=== PATIENT | female | born 1935 | race Caucasian/White ===

== ENCOUNTER 2017-12-24 14:15 | Observation (INO) | payer MEDICARE, BC ==
[2017-12-24] MEDS ORDERED: Sodium Chloride 0.9% 10 ML Syringe FLUSH PRN (14:37)
[2017-12-24] MEDS ORDERED: Ketorolac 30 MG/ML SDV IVPUSH ONE (15:31)
[2017-12-24] MEDS: Sodium Chloride 0.9% 1,000 ML IV SCH (15:45)
[2017-12-24] MEDS ORDERED: Morphine 2 MG/ML Syringe IVPUSH ONE (15:53)
[2017-12-24] MEDS ORDERED: Ondansetron 4 MG/2 ML SDV IV PRN (18:14)
--- NOTE | 2017-12-24 18:14 | EDM.PDOC ---
ED HPI GENERAL MEDICAL PROBLEM - General Chief Complaint: Back Pain or Injury Stated Complaint: CANT CONTROL PAIN Time Seen by Provider: 12/24/17 14:15 Source of Information: Reports: Patient, Family History Limitations: Reports: Physical Impairment - History of Present Illness INITIAL COMMENTS - FREE TEXT/NARRATIVE: 82y.o.w.f with a h/o metastatic pancreatic CA, recently dx'd at [facility], came to the ed with her family due to abdominal and back pain. Pt did not eat much in the past 4 days and did not have a BM for 4 days. Pt is on a Fentanyl patch and takes Vicodin on a scheduled basis. No N/V/D no Dizziness, no other acute medical issues BP 164/81 Pulse 65 RR 18 Pulse ox 96 Temp 36.8 Onset Date: 12/21/17 Onset Time: 04:00 Duration: Day(s): Location: Reports: Abdomen, Back Quality: Reports: Ache, Same as Previous Episode Severity: Moderate Improves with: Reports: Medication, Rest Worsens with: Reports: Movement Context: Reports: Other (metastatic pancreatic CA) abdominal/back Pain Score (Numeric/FACES): 7 - Related Data Allergies Allergy/AdvReac Type Severity Reaction Status Date / Time lisinopril Allergy Rash Verified 12/24/17 18:45 Home Meds: Home Meds Hydrocodone/Acetaminophen [Hydrocodon-Acetaminophn 10-325] 1 tab PO Q4HR [History] Levothyroxine [Synthroid] 50 mcg PO DAILY 12/24/17 [History] Lidocaine 5% [Lidoderm 5%] 1 patch IDERM Q8HR 12/24/17 [History] Losartan Potassium 25 mg PO BID 12/24/17 [History] Sertraline HCl 50 mg PO DAILY 12/24/17 [History] amLODIPine Besylate [Amlodipine Besylate] 10 mg PO DAILY 12/24/17 [History] fentaNYL [Duragesic] 12 mcg TD Q72H 12/24/17 [History] Past Medical History HEENT History: Reports: Impaired Vision Cardiovascular History: Reports: High Cholesterol, Hypertension Gastrointestinal History: Reports: Other (See Below) Other Gastrointestinal History: newly diagnosed with pancreatic cancer. 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 Endocrine/Metabolic History: Reports: Hypothyroidism Social & Family History - Family History Family Medical History: Noncontributory - Tobacco Use Smoking Status *Q: Never Smoker - Caffeine Use Caffeine Use: Reports: Coffee, Soda, Tea - Recreational Drug Use Recreational Drug Use: No ED ROS GENERAL - Review of Systems Review Of Systems: See Below (0) Constitutional: Reports: Weakness HEENT: Reports: No Symptoms Respiratory: Reports: No Symptoms Cardiovascular: Reports: No Symptoms Endocrine: Reports: No Symptoms GI/Abdominal: Reports: Abdominal Pain : Reports: No Symptoms Musculoskeletal: Reports: Back Pain Skin: Reports: No Symptoms Neurological: Reports: No Symptoms Psychiatric: Reports: No Symptoms Hematologic/Lymphatic: Reports: No Symptoms Immunologic: Reports: No Symptoms ED EXAM, GI/ABD - Physical Exam Exam: See Below Exam Limited By: No Limitations General Appearance: Alert, WD/WN, Mild Distress Eyes: Bilateral: Normal Appearance Ears: Normal External Exam Nose: Normal Inspection Throat/Mouth: Normal Inspection, Normal Lips Head: Atraumatic, Normocephalic Neck: Normal Inspection Respiratory/Chest: No Respiratory Distress, Lungs Clear, Normal Breath Sounds ( poor ) Cardiovascular: Normal Peripheral Pulses, Regular Rate, Rhythm GI/Abdominal Exam: Normal Bowel Sounds, Tender (generalized) (Female) Exam: Deferred Rectal (Female) Exam: Deferred Back Exam: Normal Inspection, Full Range of Motion Extremities: Normal Inspection, Normal Range of Motion, Non-Tender, No Pedal Edema, Normal Capillary Refill Neurological: Alert, Oriented, CN II-XII Intact, Normal Cognition, Other (gate not tested, pt said she could walf if they would let her.) Psychiatric: Normal Affect, Normal Mood Skin Exam: Warm, Dry, Intact, Pallor Lymphatic: No Adenopathy Course - Vital Signs Text/Narrative:: 82y.o.w.f with a h/o metastatic pancreatic CA, recently dx'd at [facility], came to the ed with her family due to abdominal and back pain. Pt did not eat much in the past 4 days and did not have a BM for 4 days. Pt is on a Fentanyl patch and takes Vicodin on a scheduled basis. No N/V/D no Dizziness, no other acute medical issues BP 164/81 Pulse 65 RR 18 Pulse ox 96 Temp 36.8 PE: Pale appearing 82 y.o.w.f C/O abd and back pain Imaging: Abd flat upright: NAD Labs; NL WBC, BUN 27 Cr o.9 UA neg for UTI Impression: H/O metastatic pancreatic CA, Abd and back pain, nonspecific Tx: Toradol/morphine Reexam: Improved 6. Consultation: Dr. Martinez: Acceptance for admission Plan: Admit for obs for pain control Last Recorded V/S: Last Vital Signs Temp 36.6 C 12/24/17 18:40 Pulse 66 12/24/17 18:40 Resp 18 12/24/17 18:40 BP 160/60 H 12/24/17 18:40 Pulse Ox 95 12/24/17 18:40 - Orders/Labs/Meds Orders: Active Orders 24 hr Category Date Time Status Patient Status [ADT] Routine ADT 12/24/17 18:15 Active Oxygen Therapy [RC] PRN Care 12/24/17 18:15 Active Up With Assistance [RC] ASDIRECTED Care 12/24/17 18:14 Active VTE/DVT Education [RC] Per Unit Routine Care 12/24/17 18:15 Active Vital Signs [RC] Q4H Care 12/24/17 18:15 Active Regular Diet [DIET] Diet 12/24/17 Breakfast Ordered Abdomen 2V AP Upright Decub [CR] Stat Exams 12/24/17 14:37 Taken Lactated Ringers [Ringers, Lactated] 1,000 ml Med 12/24/17 18:15 Active IV ASDIRECTED Morphine Med 12/24/17 18:14 Active 1 mg IVPUSH Q2H PRN Ondansetron [Zofran] Med 12/24/17 18:14 Active 4 mg IV Q4H PRN Sodium Chloride 0.9% [Normal Saline] 1,000 ml Med 12/24/17 15:45 Active IV ASDIRECTED Sodium Chloride 0.9% [Saline Flush] Med 12/24/17 14:37 Active 10 ml FLUSH ASDIRECTED PRN Peripheral IV Insertion Adult [OM.PC] Routine Oth 12/24/17 14:37 Ordered Resuscitation Status Routine Resus Stat 12/24/17 18:14 Ordered Medication Orders Hydrocodone Bitart/Acetaminophen ([place] 325-10 Mg) 1 tab PO Q4H PREETHI Amlodipine Besylate (Norvasc) 10 mg PO DAILY PREETHI Sodium Chloride (Normal Saline) 1,000 mls @ 125 mls/hr IV ASDIRECTED PREETHI Lactated Ringer's (Ringers, Lactated) 1,000 mls @ 125 mls/hr IV ASDIRECTED PREETHI Levothyroxine Sodium (Synthroid) 50 mcg PO DAILY PREETHI Losartan Potassium (Cozaar) 25 mg PO BID PREETHI Morphine Sulfate (Morphine) 1 mg IVPUSH Q2H PRN PRN Reason: Pain (severe 7-10) Ondansetron HCl (Zofran) 4 mg IV Q4H PRN PRN Reason: Nausea/Vomiting Sertraline HCl (Zoloft) 50 mg PO DAILY [facility], [facility] Sodium Chloride (Saline Flush) 10 ml FLUSH ASDIRECTED PRN PRN Reason: Keep Vein Open Labs: Laboratory Tests 12/24/17 12/24/17 12/24/17 Range/Units 14:50 14:50 14:50 WBC 11.5 (4.5-12.0) X10-3/uL RBC 4.04 (3.23-5.20) x10(6)uL Hgb 11.9 (11.5-15.5) g/dL Hct 35.1 (30.0-51.3) % MCV 86.9 (80-96) fL MCH 29.4 (27.7-33.6) pg MCHC 33.9 (32.2-35.4) g/dL RDW 12.9 (11.5-15.5) % Plt Count 376 H (125-369) X10(3)uL MPV 7.8 (7.4-10.4) fL Neut % (Auto) 78.7 (46-82) % Lymph % (Auto) 8.2 L (13-37) % Cross % (Auto) 8.7 (4-12) % Eos % (Auto) 3 (1.0-5.0) % Baso % (Auto) 1 (0-2) % Neut # (Auto) 9.1 H (1.6-8.3) # Lymph # (Auto) 0.9 (0.6-5.0) # Cross # (Auto) 1.0 (0.0-1.3) # Eos # (Auto) 0.4 (0.0-0.8) # Baso # (Auto) 0.1 (0.0-0.2) # PT (8.7-11.1) INR (0.89-1.13) Sodium 137 (135-145) mmol/L Potassium 4.1 (3.5-5.3) mmol/L Chloride 101 (100-110) mmol/L Carbon Dioxide 26 (21-32) mmol/L BUN 27 H (7-18) mg/dL Creatinine 0.9 (0.55-1.02) mg/dL Est Cr Clr Drug Dosing TNP Estimated GFR (MDRD) > 60 (>60) BUN/Creatinine Ratio 30.0 H (9-20) Glucose 245 H (80-116) mg/dL Calcium 9.1 (8.6-10.2) mg/dL NT-Pro-B Natriuret Pep 195 (<=450) pg/mL Amylase (25-115) U/L Urine Color (YELLOW) Urine Appearance (CLEAR) Urine pH (5.0-6.5) Ur Specific [place] (1.010-1.025) Urine Protein (NEGATIVE) mg/dL Urine Glucose (UA) (NEGATIVE) mg/dL Urine Ketones (NEGATIVE) mg/dL Urine Occult Blood (NEGATIVE) Urine Nitrite (NEGATIVE) Urine Bilirubin (NEGATIVE) Urine Urobilinogen (NEGATIVE) mg/dL Ur Leukocyte Esterase (NEGATIVE) Urine RBC (0) Urine WBC (0) Ur Squamous Epith Cells (NS,R,O) Urine Bacteria (NS) 12/24/17 12/24/17 12/24/17 Range/Units 14:50 14:50 17:20 WBC (4.5-12.0) X10-3/uL RBC (3.23-5.20) x10(6)uL Hgb (11.5-15.5) g/dL Hct (30.0-51.3) % MCV (80-96) fL MCH (27.7-33.6) pg MCHC (32.2-35.4) g/dL RDW (11.5-15.5) % Plt Count (125-369) X10(3)uL MPV (7.4-10.4) fL Neut % (Auto) (46-82) % Lymph % (Auto) (13-37) % Cross % (Auto) (4-12) % Eos % (Auto) (1.0-5.0) % Baso % (Auto) (0-2) % Neut # (Auto) (1.6-8.3) # Lymph # (Auto) (0.6-5.0) # Cross # (Auto) (0.0-1.3) # Eos # (Auto) (0.0-0.8) # Baso # (Auto) (0.0-0.2) # PT 13.7 H (8.7-11.1) INR 1.35 H (0.89-1.13) Sodium (135-145) mmol/L Potassium (3.5-5.3) mmol/L Chloride (100-110) mmol/L Carbon Dioxide (21-32) mmol/L BUN (7-18) mg/dL Creatinine (0.55-1.02) mg/dL Est Cr Clr Drug Dosing Estimated GFR (MDRD) (>60) BUN/Creatinine Ratio (9-20) Glucose (80-116) mg/dL Calcium (8.6-10.2) mg/dL NT-Pro-B Natriuret Pep (<=450) pg/mL Amylase 38 (25-115) U/L Urine Color Yellow (YELLOW) Urine Appearance Clear (CLEAR) Urine pH 5.0 (5.0-6.5) Ur Specific [place] 1.025 (1.010-1.025) Urine Protein Negative (NEGATIVE) mg/dL Urine Glucose (UA) 250 H (NEGATIVE) mg/dL Urine Ketones Negative (NEGATIVE) mg/dL Urine Occult Blood Negative (NEGATIVE) Urine Nitrite Negative (NEGATIVE) Urine Bilirubin Small H (NEGATIVE) Urine Urobilinogen 4 H (NEGATIVE) mg/dL Ur Leukocyte Esterase Negative (NEGATIVE) Urine RBC 0-5 (0) Urine WBC 0-5 (0) Ur Squamous Epith Cells Moderate H (NS,R,O) Urine Bacteria Few H (NS) Meds: Medications Generic Name Dose Route Start Last Admin Trade Name Freq PRN Reason Stop Dose Admin Hydrocodone Bitart/Acetaminophen 1 tab 12/24/17 18:30 [place] 325-10 Mg PO Q4H PREETHI Amlodipine Besylate 10 mg 12/25/17 09:00 Norvasc PO DAILY PREETHI Sodium Chloride 1,000 mls @ 125 mls/hr 12/24/17 15:45 Normal Saline IV ASDIRECTED PREETHI Lactated Ringer's 1,000 mls @ 125 mls/hr 12/24/17 18:15 Ringers, Lactated IV ASDIRECTED [facility], [facility]–1983 Levothyroxine Sodium 50 mcg 12/25/17 09:00 Synthroid PO DAILY [facility] Losartan Potassium 25 mg 12/24/17 21:00 Cozaar PO BID [facility], [facility]1983 Morphine Sulfate 1 mg 12/24/17 18:14 Morphine IVPUSH Q2H PRN Pain (severe 7-10) Ondansetron HCl 4 mg 12/24/17 18:14 Zofran IV Q4H PRN Nausea/Vomiting Sertraline HCl 50 mg 12/25/17 09:00 Zoloft PO DAILY [facility] Sodium Chloride 10 ml 12/24/17 14:37 Saline Flush FLUSH ASDIRECTED PRN Keep Vein Open Discontinued Medications Generic Name Dose Route Start Last Admin Trade Name Freq PRN Reason Stop Dose Admin Ketorolac Tromethamine 15 mg 12/24/17 15:31 12/24/17 15:38 Toradol IVPUSH 12/24/17 15:32 15 mg ONETIME ONE Administration Morphine Sulfate 2 mg 12/24/17 15:53 12/24/17 15:57 Morphine IVPUSH 12/24/17 15:54 2 mg ONETIME ONE Administration Departure - Departure Time of Disposition: 18:13 Disposition: Refer to Observation Condition: Fair Clinical Impression: Pain Pancreatic malignant neoplasm Qualifiers: Pancreatic malignancy location: unspecified Qualified Code(s): C25.9 - Malignant neoplasm of pancreas, unspecified - Discharge Information - My Orders Last 24 Hours: My Active Orders 12/24/17 14:37 Abdomen 2V AP Upright Decub [CR] Stat Sodium Chloride 0.9% [Saline Flush] 10 ml FLUSH ASDIRECTED PRN Peripheral IV Insertion Adult [OM.PC] Routine 12/24/17 15:45 Sodium Chloride 0.9% [Normal Saline] 1,000 ml IV ASDIRECTED 12/24/17 18:14 Up With Assistance [RC] ASDIRECTED Morphine 1 mg IVPUSH Q2H PRN Ondansetron [Zofran] 4 mg IV Q4H PRN Resuscitation Status Routine 12/24/17 18:15 Patient Status [ADT] Routine Oxygen Therapy [RC] PRN VTE/DVT Education [RC] Per Unit Routine Vital Signs [RC] Q4H Lactated Ringers [Ringers, Lactated] 1,000 ml IV ASDIRECTED 12/24/17 Breakfast Regular Diet [DIET] - Assessment/Plan Last 24 Hours: My Active Orders 12/24/17 14:37 Abdomen 2V AP Upright Decub [CR] Stat Sodium Chloride 0.9% [Saline Flush] 10 ml FLUSH ASDIRECTED PRN Peripheral IV Insertion Adult [OM.PC] Routine 12/24/17 15:45 Sodium Chloride 0.9% [Normal Saline] 1,000 ml IV ASDIRECTED 12/24/17 18:14 Up With Assistance [RC] ASDIRECTED Morphine 1 mg IVPUSH Q2H PRN Ondansetron [Zofran] 4 mg IV Q4H PRN Resuscitation Status Routine 12/24/17 18:15 Patient Status [ADT] Routine Oxygen Therapy [RC] PRN VTE/DVT Education [RC] Per Unit Routine Vital Signs [RC] Q4H Lactated Ringers [Ringers, Lactated] 1,000 ml IV ASDIRECTED 12/24/17 Breakfast Regular Diet [DIET]
[2017-12-24] MEDS ORDERED: Lactated Ringers 1,000 ML IV SCH (18:15)
[2017-12-24] MEDS: Acetaminophen/HYDROcodone 325-10 MG Tab PO SCH ×2 (19:35→22:38)
[2017-12-24] MEDS: Morphine 2 MG/ML Syringe IVPUSH PRN ×2 (19:36→22:38)
[2017-12-24] MEDS: Losartan 25 MG Tab**PT OWN PO SCH (20:20)
[2017-12-25] MEDS: Sodium Chloride 0.9% 1,000 ML IV SCH (00:15)
[2017-12-25] MEDS: Acetaminophen/HYDROcodone 325-10 MG Tab PO SCH ×4 (02:50→14:03)
[2017-12-25] MEDS ORDERED: Levothyroxine 50 MCG Tab**PT OWN PO SCH (06:00)
[2017-12-25] MEDS: Losartan 25 MG Tab**PT OWN PO SCH (08:30)
[2017-12-25] MEDS ORDERED: amLODIPine 10 MG Tab**PT OWN PO SCH (09:00)
--- NOTE | 2017-12-25 09:00 | PCM.HP ---
H&P History of Present Illness - General Date of Service: 12/25/17 Admit Problem/Dx: Admission Diagnosis/Problem Admission Diagnosis/Problem Back pain Source of Information: Patient, Provider History Limitations: Reports: No Limitations - History of Present Illness Initial Comments - Free Text/Narative: Joselyn is an 82-year-old female brought in by family last night because of uncontrolled back and abdominal pain. Per family she was recently diagnosed with metastatic pancreatic cancer at the [facility] on 06 December. She's been on a Duragesic patch, and scheduled hydrocodone, but over the last 4 days her pain has been uncontrolled. She's been restless,not eating or drinking well and has had some constipation. She has no vomiting no fever or chills. She was mostly admitted to control her pain and prevent dehydration. This morning after an overnight fluid resuscitation and IV medication treatment she feels much better and wants to go home. abdominal/back Pain Score (Numeric/FACES): 7 DENIES Pain Score (Numeric/FACES): 0 - Related Data Allergies/Adverse Reactions: Allergies Allergy/AdvReac Type Severity Reaction Status Date / Time lisinopril Allergy Rash Verified 12/24/17 18:45 Home Medications: Home Meds Hydrocodone/Acetaminophen [Hydrocodon-Acetaminophn 10-325] 1 tab PO Q4HR [History] Levothyroxine [Synthroid] 50 mcg PO DAILY 12/24/17 [History] Lidocaine 5% [Lidoderm 5%] 1 patch IDERM Q8HR 12/24/17 [History] Losartan Potassium 25 mg PO BID 12/24/17 [History] Sertraline HCl 50 mg PO DAILY 12/24/17 [History] amLODIPine Besylate [Amlodipine Besylate] 10 mg PO DAILY 12/24/17 [History] fentaNYL [Duragesic] 12 mcg TD Q72H 12/24/17 [History] Past Medical History HEENT History: Reports: Impaired Vision Cardiovascular History: Reports: High Cholesterol, Hypertension Gastrointestinal History: Reports: Other (See Below) Other Gastrointestinal History: newly diagnosed with pancreatic cancer. 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 Endocrine/Metabolic History: Reports: Hypothyroidism - Infectious Disease History Infectious Disease History: Reports: Chicken Pox, Measles, Mumps Social & Family History - Family History Family Medical History: Noncontributory - Tobacco Use Smoking Status *Q: Never Smoker Second Hand Smoke Exposure: Yes - Caffeine Use Caffeine Use: Reports: Coffee, Soda, Tea - Recreational Drug Use Recreational Drug Use: No H&P Review of Systems - Review of Systems: Review Of Systems: ROS reveals no pertinent complaints other than HPI. Exam - Exam Exam: See Below - Vital Signs Vital Signs: Last Vital Signs Temp 98.1 F 12/25/17 07:35 Pulse 59 L 12/25/17 07:35 Resp 20 12/25/17 07:35 BP 150/60 H 12/25/17 08:31 Pulse Ox 93 L 12/25/17 07:35 Weight: 56.2 kg - Exam General: Alert, Oriented, 4 HEENT: PERRLA, Hearing Intact, Mucosa Moist & [place], Nares Patent, Normal Nasal Septum, Posterior Pharynx Clear, Conjunctiva Clear, EOMI, EACs Clear, TMs Clear Neck: Supple, Trachea Midline, 2 Lungs: Clear to Auscultation, Normal Respiratory Effort Cardiovascular: Regular Rate, Regular Rhythm GI/Abdominal Exam: Normal Bowel Sounds, Soft, Non-Tender, No Organomegaly, No Distention, No Abnormal Bruit, No Mass, Pelvis Stable (Female) Exam: Deferred Rectal (Female) Exam: Deferred Back Exam: Normal Inspection, CVA Tenderness (R), Paraspinal Tenderness Extremities: Normal Inspection, Normal Range of Motion, Non-Tender, No Pedal Edema, Normal Capillary Refill Skin: Warm, Dry, Intact Neurological: Cranial Nerves Intact, Reflexes Equal Bilateral Neuro Extensive - Mental Status: Alert, Oriented x3, Normal Mood/Affect, Normal Cognition Neuro Extensive - Motor, Sensory, Reflexes: CN II-XII Intact, Normal Gait, Normal Reflexes Psychiatric: Alert, Normal Affect, Normal Mood - Patient Data Result Diagrams: 12/24/17 14:50 12/24/17 14:50 *Q Meaningful Use (ADM) - VTE *Q VTE Criteria *Q: - Stroke *Q Stroke Criteria *Q: - AMI *Q AMI Criteria *Q: - Problem List (1) Pain SNOMED Code(s): 08485616 ICD Code: R52 - PAIN, UNSPECIFIED Status: Acute Current Visit: Yes (2) Pancreatic malignant neoplasm SNOMED Code(s): 631162622 ICD Code: C25.9 - MALIGNANT NEOPLASM OF PANCREAS, UNSPECIFIED Status: Acute Current Visit: Yes Qualifiers: Pancreatic malignancy location: unspecified Qualified Code(s): C25.9 - Malignant neoplasm of pancreas, unspecified (3) Dehydration SNOMED Code(s): 87520135 ICD Code: E86.0 - DEHYDRATION Status: Acute Current Visit: Yes (4) Back pain SNOMED Code(s): 971531454 ICD Code: M54.9 - DORSALGIA, UNSPECIFIED Status: Acute Current Visit: Yes Qualifiers: Back pain location: low back pain Chronicity: chronic Back pain laterality: bilateral Sciatica presence: without sciatica Qualified Code(s) : M54.5 - Low back pain; G89.29 - Other chronic pain; G89.29 - Other chronic pain (5) Hyperglycemia SNOMED Code(s): 70836367 ICD Code: R73.9 - HYPERGLYCEMIA, UNSPECIFIED Status: Acute Current Visit : Yes (6) HTN (hypertension) SNOMED Code(s): 77883319 ICD Code: I10 - ESSENTIAL (PRIMARY) HYPERTENSION Status: Chronic Current Visit: Yes Qualifiers: Hypertension type: essential hypertension Qualified Code(s): I10 - Essential (primary) hypertension (7) HLD (hyperlipidemia) SNOMED Code(s): 74735230 ICD Code: E78.5 - HYPERLIPIDEMIA, UNSPECIFIED Status: Chronic Current Visit: Yes Qualifiers: Hyperlipidemia type: unspecified Qualified Code(s): E78.5 - Hyperlipidemia , unspecified Problem List Initiated/Reviewed/Updated: Yes Orders Last 24hrs: Active Orders 24 hr Category Date Time Status Acetaminophen/HYDROcodone [[place] 325-10 MG] Med 12/24/17 18:30 Active 1 tab PO Q4H Levothyroxine [Synthroid] Med 12/25/17 06:00 Active 50 mcg PO DAILY@0600 Losartan [Cozaar] Med 12/24/17 21:00 Active 25 mg PO BID Sertraline [Zoloft] Med 12/25/17 09:00 Active 50 mg PO DAILY amLODIPine [Norvasc] Med 12/25/17 09:00 Active 10 mg PO DAILY Medication Orders Hydrocodone Bitart/Acetaminophen ([place] 325-10 Mg) 1 tab PO Q4H PREETHI Last Admin: 12/25/17 06:12 Dose: 1 tab Admin: 12/25/17 02:50 Dose: 1 tab Admin: 12/24/17 22:38 Dose: 1 tab Admin: 12/24/17 19:35 Dose: 1 tab Amlodipine Besylate (Norvasc) 10 mg PO DAILY [facility]1983 Last Admin: 12/25/17 08:31 Dose: 10 mg Sodium Chloride (Normal Saline) 1,000 mls @ 125 mls/hr IV ASDIRECTED [facility], [facility]1983 Last Admin: 12/25/17 00:15 Dose: 125 mls/hr Infusion: 12/24/17 23:45 Dose: 125 mls/hr Admin: 12/24/17 15:45 Dose: 125 mls/hr Lactated Ringer's (Ringers, Lactated) 1,000 mls @ 125 mls/hr IV ASDIRECTED [facility], [facility]–1983 Levothyroxine Sodium (Synthroid) 50 mcg PO DAILY@0600 [facility] Last Admin: 12/25/17 06:00 Dose: 50 mcg Losartan Potassium (Cozaar) 25 mg PO BID [facility] Last Admin: 12/25/17 08:30 Dose: 25 mg Admin: 12/24/17 20:20 Dose: 25 mg Morphine Sulfate (Morphine) 1 mg IVPUSH Q2H PRN PRN Reason: Pain (severe 7-10) Last Admin: 12/24/17 22:38 Dose: 1 mg Admin: 12/24/17 19:36 Dose: 1 mg Ondansetron HCl (Zofran) 4 mg IV Q4H PRN PRN Reason: Nausea/Vomiting Sertraline HCl (Zoloft) 50 mg PO DAILY [facility] Last Admin: 12/25/17 08:31 Dose: 50 mg Sodium Chloride (Saline Flush) 10 ml FLUSH ASDIRECTED PRN PRN Reason: Keep Vein Open Assessment/Plan Comment:: Patient feels much better overnight. She is oriented breakfast. [facility] I will discharge after breakfast if her pain is stable.
[2017-12-25] MEDS: Morphine 2 MG/ML Syringe IVPUSH PRN ×2 (12:01→14:25)
== END 2017-12-25 14:40 | disposition home or self-care (01) ==
LOC: FB.ED 14:15 → FB.MS 18:15
PROVIDERS: ADMIT Family Medicine; ATTEND Family Medicine
DX: G89.29 Other chronic pain (principal); M54.5 Low back pain; C25.9 Malignant neoplasm of pancreas, unspecified; E86.0 Dehydration; I10 Essential (primary) hypertension; E78.00 Pure hypercholesterolemia, unspecified; E78.5 Hyperlipidemia, unspecified; E03.9 Hypothyroidism, unspecified; Z79.899 Other long term (current) drug therapy; Z88.8 Allergy status to other drugs, medicaments and biological substances
CPT/HCPCS: 36415; 74021; 80048; 81001; 82150; 83880; 85025; 85610; 96361; 96374; 96375; 96376; 99283; 99284; A9270-GY; G0378; J1885; J2270; J7040; J7050